=== PATIENT | female | born 1990 | race Caucasian/White ===

== ENCOUNTER 2017-07-24 16:08 | Emergency (ER) | payer MEDICAID, SELFPAY ==
[2017-07-24 16:09] VITALS: BP 126/73; PULSE 90; RESP 17; TEMP 36.6; O2SAT 98; BMI 27.8
[2017-07-24] MEDS: 0.9% Normal Saline 1,000 ML 1000 ML IV (16:43)
[2017-07-24] MEDS: Ondansetron 4 MG/2 ML Vial IV (16:43)
[2017-07-24 17:03] LABS: Absolute Lymphocyte Count 2.15 X10^3/ul (0.83-4.51); Absolute Neutrophil Count 1.9 X10^3/uL (2.0-7.7); Basophil# 0.03 X10^3/uL; Basophil% 0.7 % (0-1); Eosinophil# 0.14 X10^3/uL; Eosinophils% 3.1 % (0-5); Hematocrit 34.3 % (37-47); Hemoglobin 11.5 g/dl (12.0-15.0); Lymphocyte # 2.15 X10^3/ul (4.0); Lymphocyte % 48.3 % (19-41); Mean Corp Hgb Conc 33.5 g/gl (32-36); Mean Corpuscular Hgb 29.2 pg (27.0-32.0); Mean Corpuscular Volume 87.1 fL (81-99); Mean Platelet Vol. 8.6 fl (6.2-12.0); Monocyte# 0.26 X10^3/uL; Monocyte% 5.8 % (0-10); Neutrophil # 1.87 X10^3/uL (2.7-7.7); Neutrophil % 42.1 % (47-70); Platelet Count 403 K/mm3 (150-450); RBC Distribution Width CV 15.8 % (11.6-14.6); Red Blood Count 3.94 M/mm3 (4.2-5.4); White Blood Count 4.5 K/mm3 (4.4-11.0)
[2017-07-24 17:18] LABS: Anion Gap 6 (5-15); BUN 11 mg/dL (7-18); BUN/Creat Ratio 18.2 RATIO (10-20); Calcium,Total 8.6 mg/dL (8.5-10.1); Chloride 109 mmol/L (98-107); Creatinine, Serum 0.61 mg/dL (0.55-1.02); EST Glomerular Filtration Rate 127 mL/min (>60); Est Glom Filt Rate - Afr Amer 154 mL/min (>60); Estimated Creatinine Clearance 126.86 ml/min; Glucose 94 mg/dL (74-106); Potassium 3.2 mmol/L (3.5-5.1); Sodium Level 142 mmol/L (136-145)
[2017-07-24 17:33] LABS: Pregnancy, Serum, hCG Quali. NEGATIVE Negative (0-9 Nonpreg)
[2017-07-24 17:40] LABS: POSITIVE COUNT NO; POSITIVE DIFFERENTIAL NO; POSITIVE MORPHOLOGY NO
--- NOTE | 2017-07-24 17:50 | ED.VISSUMM ---
- ER Visit Summary Date of Service: 07/24/17 Chief Complaint: Lightheaded History of Present Illness: The patient is a [address] Avery. 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 States that she feels lightheaded and that she may be dehydrated. She reports that yesterday at work she began feeling lightheaded around lunch and became nauseated. She is vomited 5-6 times since then. No blood or emesis. No diarrhea. No abdominal pain. Physical Examination: Vitals: Stable. Afebrile. General: Well-nourished and well-developed. Head: Normocephalic atraumatic. Neck: Supple, no lymphadenopathy. No JVD. Nontender. Cardiovascular: Regular rate and rhythm. No murmurs. Respiratory: No respiratory distress. Clear to auscultation bilaterally. Abdominal: Soft, nontender, nondistended, normal bowel sounds. No guarding, rebound, or peritoneal signs. Back: Nontender. Extremities: Nontender, no edema. Skin: Normal color, no rash. Neurologic: Alert and oriented ?3. Cranial nerves II through XII are intact. Normal strength and sensation. Psych: Normal affect. Test Results: BC is remarkable for an H&H of 11.5 and 34.3, segmented neutrophils of 42, lymphocytes of 48. Chem-7 is marked potassium 3.2 chloride 109. test is negative. Emergency Department Course and Treatment: Patient is given a liter of normal saline and Zofran IV. She is resting comfortably. She has had no vomiting while here. Treatment Plan: Patient will be discharged with Zofran instructed to push fluids. Follow-up with primary care physician 1-2 days not improving. Return to the emergency department for any worsening symptoms. Disposition: To home in improved and stable condition. Impression: 1. Vomiting. This note was generated with [employer] dictation software. It may contain incorrect words, spelling, and punctuation that were not noted in review of the chart prior to signing ED Disposition - Plan for ED Patient: Disposition: Home or Assisted Living Chief Complaint: Weakness Instructions: ED Nausea Vomiting Prescriptions: Ondansetron [Zofran Odt] 4 mg PO Q8H PRN PRN #10 tablet PRN Reason: Nausea Referrals: Alka Colón, SUPPLY CHAIN GENERALIST-C [Primary Care Provider] - 1-2 Days if not improving
[2017-07-24 18:32] VITALS: BP 120/74; PULSE 81; RESP 16; O2SAT 99
== END 2017-07-24 18:33 | disposition home or self-care (01) ==
LOC: ED 16:58
PROVIDERS: Emergency Provider Emergency Medicine; Family Provider Nurse Practitioner Family; PCP Nurse Practitioner Family
DX: R11.2 Nausea with vomiting, unspecified (principal); R42 Dizziness and giddiness
CPT/HCPCS: 80048; 84703; 85025; 96361; 96374; 99283; J7030; A4216; J2405

== ENCOUNTER 2018-07-30 14:49 | Emergency (ER) | payer MEDICAID, SELFPAY ==
[2018-07-30 14:49] VITALS: BP 119/48; PULSE 89; RESP 16; TEMP 36.6; O2SAT 100; BMI 23.8
--- NOTE | 2018-07-30 15:17 | CT_ITS ---
STUDY: CT ABDOMEN AND PELVIS WITHOUT CONTRAST REASON FOR EXAM: Female, 27 years old. Right lower quadrant pain. History of prior tubal ligation. RADIATION DOSAGE (If Supplied By Facility): CTDIvol = ( 9.49 ) mGy, DLP = ( 439.40 ) mGycm TECHNIQUE: Transaxial images were obtained from the dome of the diaphragm to the symphysis pubis without oral contrast, and without intravenous contrast. Sagittal and coronal images were reconstructed. Individualized dose optimization techniques were used for this CT. COMPARISON: January 18, 2017. FINDINGS: The visualized lung bases are unremarkable. The visualized portions of the heart are within normal limits. Normal liver. Normal gallbladder and extrahepatic biliary system. Normal spleen. Normal pancreas. Normal bilateral adrenal glands. Normal right kidney. Normal left kidney. Normal visualized stomach. Normal small intestine. Normal colon. The appendix is visualized and appears normal. Normal abdominal aorta. There is venous distention of the inferior vena cava (IVC). Normal retroperitoneum. Normal urinary bladder. The uterus appears anteverted and of normal size and contour. There is evidence of tubal ligation clips. There is no adnexal mass. No pelvic lymphadenopathy. No free air or free fluid is seen within the peritoneal cavity. Normal abdominal wall. Normal osseous structures. CT/Abdomen/Pelvis without Cont IMPRESSION: 1. Normal appendix. 2. No evidence of renal ureteral or urinary bladder abnormality. 3. No evidence for acute intra-abdominal process or major interval change. Electronically Signed: Vasiliy Grace DO at 16:35 EDT Tel [phone], Service support ,
[2018-07-30 15:36] LABS: Absolute Lymphocyte Count 2.13 X10^3/ul (0.83-4.51); Absolute Neutrophil Count 3.5 X10^3/uL (2.0-7.7); Basophil# 0.02 X10^3/uL; Basophil% 0.3 % (0-1); Eosinophil# 0.17 X10^3/uL; Eosinophils% 2.7 % (0-5); Hematocrit 36.9 % (37-47); Hemoglobin 12.7 g/dl (12.0-15.0); Lymphocyte # 2.13 X10^3/ul (4.0); Lymphocyte % 34.4 % (19-41); Mean Corp Hgb Conc 34.4 g/gl (32-36); Mean Corpuscular Hgb 30.9 pg (27.0-32.0); Mean Corpuscular Volume 89.8 fL (81-99); Mean Platelet Vol. 9.3 fl (6.2-12.0); Monocyte% 6.5 % (0-10); Neutrophil # 3.48 X10^3/uL (2.7-7.7); Neutrophil % 56.1 % (47-70); POSITIVE COUNT NO; POSITIVE DIFFERENTIAL NO; POSITIVE MORPHOLOGY NO; Platelet Count 451 K/mm3 (150-450); RBC Distribution Width CV 13.2 % (11.6-14.6); RBC Distribution Width SD 43.2 fl (35.1-43.9); Red Blood Count 4.11 M/mm3 (4.2-5.4); White Blood Count 6.2 K/mm3 (4.4-11.0)
[2018-07-30 15:39] LABS: Internal QC Validated? YES +Cl - CLEAR BKGD; Pregnancy, Serum, hCG Quali. NEGATIVE Negative
[2018-07-30 15:44] LABS: Anion Gap 7 (5-15); BUN 10 mg/dL (7-18); BUN/Creat Ratio 14.6 RATIO (10-20); Calcium,Total 8.5 mg/dL (8.5-10.1); Chloride 109 mmol/L (98-107); Creatinine, Serum 0.69 mg/dL (0.55-1.02); EST Glomerular Filtration Rate 109 mL/min (>60); Est Glom Filt Rate - Afr Amer 132 mL/min (>60); Estimated Creatinine Clearance 111.18 ml/min; Glucose 91 mg/dL (74-106); Potassium 3.7 mmol/L (3.5-5.1); Sodium Level 143 mmol/L (136-145)
[2018-07-30] MEDS: 0.9% Normal Saline 1,000 ML 125 ML IV (16:07)
[2018-07-30] MEDS: Morphine 4 MG/ML Syringe IV (16:07)
[2018-07-30] MEDS: Ondansetron 4 MG/2 ML Vial IV (16:07)
[2018-07-30] MEDS: Ketorolac 30 MG/ML Syringe IV (16:07)
[2018-07-30 16:29] LABS: Color, Urine Yellow (Yellow); Glucose, Dipstick Normal (Normal); Ketone-Dipstick Negative (Negative); Leukocyte Esterase-Dipstick Negative /ul (Negative); Nitrite-Dipstick Negative (Negative); Occult Blood-Urine Negative /ul (Negative); Protein-Dipstick Negative (Negative); Specific Gravity, Urine 1.015 (1.002-1.030); Urine Bilirubin Dipstick Negative (Negative); Urine Clarity Sl. Cloudy (Clear); Urine Urobilinogen Normal (Normal)
--- NOTE | 2018-07-30 16:55 | ED.DCSUM_ITS ---
- ER Visit Summary Date of Service: 07/30/18 Chief Complaint: [Abdominal pain] History of Present Illness: The patient is a 27 F [presents the emergency department for abdominal pain that started 45 minutes prior to arrival in the emergency department. Patient describes a sharp stabbing pain. She rates it a 9 out of 10. She is had nausea but no vomiting. She denies any diarrhea. She denies any urinary symptoms. She is had no fever. Patient is never had pain like this before. She denies any radiation to her back. Patient's last menstrual. Was July 12 but was shorter than usual and that it only lasted 2 days. Patient is G8, P3. Patient states the pain started when she was sitting on the couch and it came on gradually and worsened. Movement does not seem to exacerbate it.] Patient states the pain is in the right lower quadrant. Physical Examination: [HEENT-PERRLA, EOMI. Cranial nerves II through XII grossly intact. TMs clear. Mucous membranes moist. No adenopathy. Cardiovascular-regular rate and rhythm without murmur or ectopy Lungs-clear to auscultation, chest wall stable without crepitus or subcu emphysema Abdomen-normoactive bowel sounds, soft. Patient has tenderness to the right lower quadrant with some guarding. There is no rebound, rigidity, or perineal signs. Patient has some mild CVA tenderness on the right. Extremities-intact ?4, normal range of motion, normal pulses, atraumatic] Test Results: [CBC with differential was normal. Chemistries were normal. Urinalysis normal. hCG was negative. CT flank showed nothing acute. The appendix was visualized and was normal. She had no bowel obstruction or hernias noted. No adnexal masses noted.] Emergency Department Course and Treatment: [Patient was medicated with Toradol and 4 mill grams of morphine and 4 mg of Zofran. Patient's pain resolved.] Treatment Plan: [She will be given a prescription for a few [place] for severe pain. Patient advised to follow-up with primary care physician within next 3 to 5 days. Patient advised to return if worsening pain, fever, vomiting, or condition should worsen anyway.] Disposition: [Discharged home in stable condition] Impression: [Abdominal pain-etiology uncertain] This note was generated with [employer] software. It may contain incorrect words, spelling, and punctuation that were not noted in review of the chart prior to signing ED Disposition - Plan for ED Patient: Referrals: Alka Colón, MEDICAL SERVICE REPRESENTATIVE-C [Primary Care Provider] -
--- NOTE | 2018-07-30 16:55 | ED.DEP ---
ED Disposition - Plan for ED Patient: Instructions: ED Abdominal Pain Unkn Cause Prescriptions: Hydrocodone Bitart/Apap 5-325 [[place] 5MG-325MG] 1 tab PO Q4H PRN PRN 2 Days #10 tab PRN Reason: Pain Referrals: Alka Colón, MARKET INVESTIGATOR-C [Primary Care Provider] - 3-5 Days
--- NOTE | 2018-07-30 16:56 | DCINST.ED_ITS ---
ED Disposition - Plan for ED Patient: Instructions: ED Abdominal Pain Unkn Cause Prescriptions: Hydrocodone Bitart/Apap 5-325 [[place] 5MG-325MG] 1 tab PO Q4H PRN PRN 2 Days #10 tab PRN Reason: Pain Referrals: Alka Colón, ANTHROPOMETRIST-C [Primary Care Provider] - 3-5 Days
[2018-07-30 17:18] VITALS: BP 101/55; PULSE 61; RESP 14
[2018-07-30 17:18] LABS: Bacteria 3+ /hpf (None Seen); Mucous, Urine 1+ /hpf (<or=2+); Red Blood Cells-Urine 0-5 SEEN /hpf (0-5); Squamous Epithelial Cells - UA 10-25 SEEN /hpf (5-10); White Blood Cells 0-5 SEEN /hpf (0-5)
== END 2018-07-30 17:18 | disposition home or self-care (01) ==
LOC: ED 15:38
PROVIDERS: Emergency Provider Emergency Medicine; Family Provider Nurse Practitioner Family; PCP Nurse Practitioner Family
DX: R10.31 Right lower quadrant pain (principal); R11.0 Nausea; Z72.0 Tobacco use
CPT/HCPCS: 74176; 80048; 81001; 84703; 85025; 96361; 96374; 96375; 99284; J7030; A4216; J2405

== ENCOUNTER 2018-09-07 14:46 | Emergency (ER) | payer MEDICAID, SELFPAY ==
[2018-09-07 14:47] VITALS: BP 110/80; PULSE 103; RESP 15; TEMP 36.7; O2SAT 98; BMI 23.3
[2018-09-07] MEDS: Ketorolac 30 MG/ML Syringe IV (16:05)
[2018-09-07] MEDS: 0.9% Normal Saline 1,000 ML 125 ML IV (16:05)
[2018-09-07 16:23] LABS: Red Blood Cells-Urine 0 SEEN /hpf (0-5)
[2018-09-07 16:23] LABS: Absolute Lymphocyte Count 1.48 X10^3/ul (0.83-4.51); Absolute Neutrophil Count 9.3 X10^3/uL (2.0-7.7); Basophil# 0.02 X10^3/uL; Basophil% 0.2 % (0-1); Eosinophil# 0.14 X10^3/uL; Eosinophils% 1.2 % (0-5); Hematocrit 37.1 % (37-47); Hemoglobin 12.8 g/dl (12.0-15.0); Lymphocyte # 1.48 X10^3/ul (4.0); Lymphocyte % 12.6 % (19-41); Mean Corp Hgb Conc 34.5 g/gl (32-36); Mean Corpuscular Hgb 31.4 pg (27.0-32.0); Mean Corpuscular Volume 91.2 fL (81-99); Monocyte# 0.79 X10^3/uL; Monocyte% 6.8 % (0-10); Neutrophil # 9.25 X10^3/uL (2.7-7.7); Platelet Count 403 K/mm3 (150-450); RBC Distribution Width CV 13.6 % (11.6-14.6); RBC Distribution Width SD 44.9 fl (35.1-43.9); Red Blood Count 4.07 M/mm3 (4.2-5.4); White Blood Count 11.7 K/mm3 (4.4-11.0)
[2018-09-07 16:27] LABS: POSITIVE COUNT NO; POSITIVE DIFFERENTIAL NO; POSITIVE MORPHOLOGY NO
[2018-09-07 16:30] LABS: Color, Urine Straw (Yellow); Glucose, Dipstick Normal (Normal); Ketone-Dipstick 50 mg/dl (Negative); Leukocyte Esterase-Dipstick 25 /ul (Negative); Nitrite-Dipstick Negative (Negative); Occult Blood-Urine 10 /ul (Negative); Protein-Dipstick 15 mg/dl (Negative); Urine Clarity Sl. Cloudy (Clear); Urine Urobilinogen 8 mg/dl (Normal)
[2018-09-07 16:34] LABS: Urine Bilirubin Dipstick 1 mg/dL (Negative)
[2018-09-07 16:44] LABS: Squamous Epithelial Cells - UA 5-10 SEEN /hpf (5-10); White Blood Cells 0-5 SEEN /hpf (0-5)
[2018-09-07 16:44] LABS: ALB/GLOB Ratio 1.1 RATIO (0.9-2.4); AST(SGOT) 10 U/L (15-37); Alanine Aminotransfer ALT/SGPT 13 U/L (13-56); Albumin, Serum 3.9 g/dL (3.2-5.0); Alkaline Phosphatase 73 U/L (45-117); Anion Gap 3 (5-15); BUN 15 mg/dL (7-18); BUN/Creat Ratio 25.6 RATIO (10-20); Calcium,Total 9.2 mg/dL (8.5-10.1); Chloride 109 mmol/L (98-107); Creatinine, Serum 0.58 mg/dL (0.55-1.02); EST Glomerular Filtration Rate 131 mL/min (>60); Est Glom Filt Rate - Afr Amer 159 mL/min (>60); Estimated Creatinine Clearance 132.26 ml/min; Globulin 3.5 g/dL (2.2-4.2); Glucose 77 mg/dL (74-106); Potassium 3.2 mmol/L (3.5-5.1); Protein, Total 7.4 g/dL (6.4-8.2); Sodium Level 141 mmol/L (136-145)
[2018-09-07 16:45] LABS: Bacteria RARE /hpf (None Seen); Mucous, Urine 3+ /hpf (<or=2+)
[2018-09-07 17:16] LABS: Internal QC Validated? YES +Cl - CLEAR BKGD; Pregnancy, Serum, hCG Quali. NEGATIVE Negative
[2018-09-07 17:53] VITALS: BP 106/63; PULSE 80; RESP 16; O2SAT 100
--- NOTE | 2018-09-07 18:15 | ED.VISSUMM ---
- ER Visit Summary Date of Service: 09/07/18 Chief Complaint: [Abdominal pain] History of Present Illness: The patient is a 27 F [presents to the emergency department with abdominal pain that she has had off-and-on for the last month although on further questioning she states that it has actually been there for several years ever since she has had her tubal ligation. Patient states she has had multiple ER visits for this pain and no etiology has ever been found. Patient was seen by me within the last month for the same complaint at which time she had blood work and a CT scan of the abdomen pelvis which did not show anything significant. Patient is following up with her primary care physician but does not have an appointment till November. Patient is currently on her menstrual period. The pain became worse today and she comes in for repeat evaluation. She describes a sharp pain at right lower quadrant and rates it about a 6 or 7 out of 10. Patient states that she has been taking Aleve and it oftentimes will help take away the discomfort to a manageable point. Patient denies any fever. She denies nausea or vomiting. She denies any blood in her stool or black tarry stool. She denies urinary symptoms. She does not think she is .] Physical Examination: [HEENT-PERRLA, EOMI. Cranial nerves II through XII grossly intact. TMs clear. Mucous membranes moist. No adenopathy. Cardiovascular-regular rate and rhythm without murmur or ectopy Lungs-clear to auscultation, chest wall stable without crepitus or subcu emphysema Abdomen-normoactive bowel sounds, soft. Patient has tenderness to palpation over right lower quadrant some guarding. There is no rebound, rigidity, cranial signs. Extremities-intact ?4, normal range of motion, normal pulses, atraumatic] Test Results: [CBC with differential again 11.7, hemoglobin 12.8, hematocrit 37, plan is 403. Chemistries unremarkable other than a slightly depressed potassium 3.2. Liver enzymes were normal. Urinalysis normal. hCG was negative.] Emergency Department Course and Treatment: [Was medicated with Toradol and she states that she had good pain relief with that. At this point I do not feel she needs further imaging as she just recently had a CT scan of the pelvis. Patient will be referred to general surgery flight information expediter for no doc as well as CLINICAL CYTOGENETICS DIRECTOR for further follow-up. Patient will be given a prescription for few [place] for severe pain.] Treatment Plan: [Furled general surgery and CLINICAL CYTOGENETICS DIRECTOR. Patient also given a few [place] for pain] Disposition: [Discharged to home stable condition.] Impression: [Acute exacerbation of chronic abdominal pain-etiology uncertain] This note was generated with [employer] dictation software. It may contain incorrect words, spelling, and punctuation that were not noted in review of the chart prior to signing ED Disposition - Plan for ED Patient: Referrals: Alka Colón, PARKS RECREATION COORDINATOR-C [Primary Care Provider] -
--- NOTE | 2018-09-07 18:18 | DCINST.ED_ITS ---
ED Disposition - Plan for ED Patient: Instructions: ABDOMINAL PAIN, Unknown Cause, (Female) Prescriptions: Hydrocodone Bitart/Apap 5-325 [[place] 5MG-325MG] 1 tab PO Q4H PRN PRN 2 Days #10 tab PRN Reason: Pain Prescription Printed Referrals: Alka Colón, GAUGE MACHINE OPERATOR-C [Primary Care Provider] - Doron Francisco MD [STAFF PHYSICIAN] - 3-5 Days Mamta Waddell MD [STAFF PHYSICIAN] - 3-5 Days
--- NOTE | 2018-09-07 18:18 | ED.DEP ---
ED Disposition - Plan for ED Patient: Instructions: ABDOMINAL PAIN, Unknown Cause, (Female) Prescriptions: Hydrocodone Bitart/Apap 5-325 [[place] 5MG-325MG] 1 tab PO Q4H PRN PRN 2 Days #10 tab PRN Reason: Pain Prescription Printed Referrals: Alka Colón, YARN EXAMINER SKEINS-C [Primary Care Provider] - Doron Francisco MD [STAFF PHYSICIAN] - 3-5 Days Mamta Waddell MD [STAFF PHYSICIAN] - 3-5 Days
[2018-09-07 18:25] VITALS: RESP 16
== END 2018-09-07 18:25 | disposition home or self-care (01) ==
LOC: ED 15:43
PROVIDERS: Emergency Provider Emergency Medicine; Family Provider Nurse Practitioner Family; PCP Nurse Practitioner Family
DX: R10.31 Right lower quadrant pain (principal); G89.29 Other chronic pain
CPT/HCPCS: 80053; 81001; 84703; 85025; 96361; 96374; 99283; J7030

== ENCOUNTER 2019-02-15 16:04 | Emergency (ER) | payer MEDICAID, SELFPAY ==
[2019-02-15 16:05] VITALS: BP 128/66; PULSE 84; RESP 16; TEMP 36.7; O2SAT 98; BMI 23.8
--- NOTE | 2019-02-15 16:16 | ED.DCSUM_ITS ---
History of Present Illness Narrative: 28-year-old female presents with finger laceration. Patient was cutting onions with her [id number] when the knife slipped and cut her index finger. States it was bleeding which concerned her and she came to the emergency department. No significant pain. Last tetanus was 8 years ago. <Maxwell Quinn - Last Filed: 02/15/19 16:25> <Mary Chu - Last Filed: 02/16/19 00:31> Chief Complaint: Laceration Past Medical History Prior records reviewed: Yes Past Medical History: None Surgical History: no surgical history Lives: Spouse/ Significant Other Smoking Status: Current every day smoker <Maxwell Quinn - Last Filed: 02/15/19 16:25> <Mary Chu - Last Filed: 02/16/19 00:31> - Allergies and Home Meds Allergies/Adverse Reactions: Allergies oxycodone [From Percocet] Allergy (Verified 09/07/18 14:50) Hives tomato Allergy (Verified 09/07/18 14:50) Anaphylaxis Primary Care Physician: Alak Colón MINE INSPECTOR FEDERAL-C [Primary Care Provider] - Review of Systems General: Denies: Chills, Fever, Sweats Eyes: Denies: Visual changes - bilaterally, Diplopia ENT: Denies: Rhinorrhea, Sore throat Cardiovascular: Denies: Chest pain, Palpitations Respiratory: Denies: Dyspnea, Cough, Dyspnea on exertion Gastrointestinal: Denies: Abdominal pain, Nausea, Vomiting, Diarrhea, Melena, Hematochezia Genitourinary: Denies: Dysuria, Hematuria, Frequency Musculoskeletal: Denies: Back pain, Extremity Pain Skin: Denies: Rash, Wounds Neurological: Denies: Headache, Weakness, Numbness <Maxwell Quinn - Last Filed: 02/15/19 16:25> Physical Exam Vital Signs/Narrative: Vital Signs Temp Pulse Resp BP Pulse Ox 02/15/19 16:05 98.1 F 84 16 128/66 H 98 General: Well nourished, Well developed, No Acute Distress Head: Normocephalic, Atraumatic Eyes: Perrl, EOMI ENT: Moist mucous membranes, No rhinorrhea Neck: Supple, Nontender Cardiovascular: Regular rate, Regular rhythm, No murmurs Respiratory: No distress, CTA bilaterally, Chest nontender Abdomen: Soft, Nontender, Nondistended, Normal bowel sounds Back: Nontender, Normal Inspection Extremities: Nontender, No edema Skin: Normal color, No rash, - - 0.5 cm superficial laceration to the left index finger. Neurological: Alert, Oriented x3, Cranial nerves II-XII grossly intact, Normal Strength, Normal Sensation Psychological: Normal affect, Normal Mood <Maxwell Quinn - Last Filed: 02/15/19 16:25> Diagnostic/Tx/Re-eval - Medical Decision Making She appears well and nontoxic. Tdap was updated. Wound repaired with shoe adhesive. No indication for imaging or antibiotics. Patient had the wound thoroughly cleansed and soaked in the emergency department. Asked to follow-up with primary care within the next 48 hours for reevaluation of the wound. Patient agreeable and discharged home in stable condition. <Maxwell Quinn - Last Filed: 02/15/19 16:25> - Medical Decision Making Patient seen and evaluated with resident. Patient was cutting some food at home when she cut her left index and long fingers with a knife. Bleeding is well controlled at this time. Patient sitting upright in bed no acute distress. Left upper extremity examination reveals small laceration along the radial aspect of the distal index finger. There is a small, 1 to 2 mm, laceration on the long finger. Patient has normal sensation distally with good cap refill. Wounds are cleansed. Dermabond is applied. Tetanus update is provided. <Mary Chu - Last Filed: 02/16/19 00:31> ED Disposition <Maxwell Quinn - Last Filed: 02/15/19 16:25> <Mary Chu - Last Filed: 02/16/19 00:31> - Plan for ED Patient: Disposition: Home or Assisted Living Diagnosis: Finger laceration Instructions: LACERATION, Hand Referrals: Alka Colón NP-C [Primary Care Provider] -
[2019-02-15] MEDS: Diphth,Pertuss(Acell),Tet Vac 0.5 ML Vial IM (16:30)
== END 2019-02-15 16:38 | disposition home or self-care (01) ==
LOC: ED 16:27
PROVIDERS: Emergency Provider Emergency Medicine; Family Provider Nurse Practitioner Family; PCP Nurse Practitioner Family
DX: S61.211A Laceration without foreign body of left index finger without damage to nail, initial encounter (principal); W26.0XXA Contact with knife, initial encounter; Y93.G1 Activity, food preparation and clean up; Y92.009 Unspecified place in unspecified non-institutional (private) residence as the place of occurrence of the external cause; F17.200 Nicotine dependence, unspecified, uncomplicated
CPT/HCPCS: 12001; 90471; 90715; 99282

== ENCOUNTER 2019-09-10 15:37 | Emergency (ER) | payer MEDICAID, SELFPAY ==
[2019-09-10 15:37] VITALS: BP 122/75; PULSE 58; RESP 18; TEMP 36.3; O2SAT 99; BMI 27.4
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
[2019-09-10 16:29] VITALS: BP 122/75; PULSE 58; RESP 18; TEMP 36.3; O2SAT 99
[2019-09-10] MEDS: Meclizine HCl 25 MG Tablet PO (16:43)
[2019-09-10] MEDS: 0.9% Normal Saline 1,000 ML 999 ML IV (16:44)
[2019-09-10] MEDS: Metoclopramide 10 MG/2 ML Vial 5 MG IV (16:44)
[2019-09-10 18:36] VITALS: BP 121/74; PULSE 81; RESP 14; O2SAT 99
--- NOTE | 2019-09-10 18:36 | ED.RN ---
THIS NURSE REVIEWED D/C INSTRUCTIONS WITH PT. PT VERBALIZED UNDERSTANDING OF INSTRUCTIONS. IV D/C. IV CATHETER INTACT. PT TOLERATED WELL. PT DENIES FURTHER NEEDS OR QUESTIONS AT THIS TIME. PT AMBULATES FROM ROOM ON OWN WITHOUT ASSISTANCE FROM STAFF
== END 2019-09-10 18:37 | disposition home or self-care (01) ==
PROVIDERS: Emergency Provider Emergency Medicine; PCP Nurse Practitioner Family
DX: H81.10 Benign paroxysmal vertigo, unspecified ear (principal)
CPT/HCPCS: 96361; 96374; 99284; A4216

== ENCOUNTER 2020-06-01 11:34 | Emergency (ER) | payer MEDICAID, SELFPAY ==
[2020-04-19 16:29] VITALS: BMI 29.1
[2020-06-01 11:35] VITALS: BP 129/82; PULSE 90; RESP 18; TEMP 36.7; O2SAT 98; BMI 28.3
--- NOTE | 2020-06-01 11:59 | ED.VISSUMM ---
- ER Visit Summary Date of Service: 06/01/20 Chief Complaint: Fall History of Present Illness: The patient is a [address] Angeles. She reports that she was walking down the steps when she tripped over a blanket and fell backwards. She states that she fell down 14 wooden steps. Did hit her head. No loss of consciousness. She is not on anticoagulants. She reports that she has right elbow pain and stated 10 severity. She is right-hand dominant. She denies neck or back pain. States she does have a headache that is 4-10 severity. Physical Examination: Vitals: Stable. Afebrile. Neck: No vertebral tenderness. Full ROM without difficulty. Cleared by NEXUS criteria. Back: No vertebral tenderness. General: A&O x 3. NAD. Cardiovascular exam: Regular rate and rhythm, no murmur, rub or gallop. Respiratory exam: Chest nontender. No crepitus. Clear to auscultation bilaterally. No wheezes or stridor. Abdominal exam: Soft, nontender, nondistended, normal bowel sounds. No pain in RUQ or LUQ specifically. No peritoneal signs. Extremity: Contusion just proximal to her olecranon process on the right. Her right elbow has severe tenderness palpation. Decreased range of motion secondary to pain. Mild tenderness palpation over her humerus. She is neuro vas intact distal to this. Test Results: Clinical Impression(s) from Imaging Studies Humerus X-Ray 06/01/20 12:15 IMPRESSION: Normal x-ray examination of the humerus. Electronically Signed: Puneet Doyle MD at 12:43 EDT , Service support , Elbow X-Ray 06/01/20 12:20 IMPRESSION: Normal x-ray examination of the elbow. Electronically Signed: Puneet Doyle MD at 12:43 EDT , Service support , Emergency Department Course and Treatment: Patient was given naproxen p.o. She is resting more comfortably. Treatment Plan: Patient be discharged instructions use Tylenol/ibuprofen for pain. Ice the area. Follow-up her primary care physician in 1 week if not improving. Return to the emergency department for any worsening symptoms. Disposition: To home in improved and stable condition. Impression: 1. Fall. 2. Right elbow contusion. This note was generated with [employer] software. It may contain incorrect words, spelling, and punctuation that were not noted in review of the chart prior to signing ED Disposition - Plan for ED Patient: Instructions: ED Contusion, Elbow Referrals: Alka Colón PRINTED CIRCUIT BOARD PREASSEMBLER, PRINTED CIRCUIT BOARD PREASSEMBLER-C [NON-STAFF] - 1 Week if not improving
--- NOTE | 2020-06-01 12:15 | RAD_ITS ---
STUDY: X-RAY - RIGHT HUMERUS REASON FOR EXAM: Female, 29 years old. Injury/Pain following a fall TECHNIQUE: 2 view(s) of the humerus. COMPARISON: None. FINDINGS: Normal visualized humerus. There is no demonstrated fracture or osseous destructive process. There is no demonstrated soft tissue abnormality. RAD/Humerus min 2 Views IMPRESSION: Normal x-ray examination of the humerus. Electronically Signed: Puneet Doyle MD at 12:43 EDT , Service support ,
--- NOTE | 2020-06-01 12:20 | RAD_ITS ---
STUDY: X-RAY - RIGHT ELBOW REASON FOR EXAM: Female, 29 years old. Injury/Pain TECHNIQUE: 3 view(s) of the elbow. COMPARISON: None. FINDINGS: Normal visualized humerus, radius and ulna. Normal radiocapitellar and ulnotrochlear articulations. The soft tissue structures are unremarkable. RAD/Elbow min 3 Views IMPRESSION: Normal x-ray examination of the elbow. Electronically Signed: Puneet Doyle MD at 12:43 EDT , Service support ,
[2020-06-01] MEDS: Naproxen 500 MG Tablet PO (13:02)
[2020-06-01 13:08] VITALS: BP 106/58; PULSE 69; RESP 16; O2SAT 97
== END 2020-06-01 13:12 | disposition home or self-care (01) ==
PROVIDERS: Emergency Provider Emergency Medicine; PCP Family Medicine
DX: S50.01XA Contusion of right elbow, initial encounter (principal); W10.9XXA Fall (on) (from) unspecified stairs and steps, initial encounter; Y93.01 Activity, walking, marching and hiking; Y92.9 Unspecified place or not applicable; Y99.9 Unspecified external cause status
CPT/HCPCS: 73060; 73080; 99282

== ENCOUNTER 2020-08-26 12:59 | Emergency (ER) | payer MEDICAID, SELFPAY ==
[2020-08-26 13:00] VITALS: BP 122/85; PULSE 107; RESP 16; TEMP 36.2; O2SAT 97; BMI 25.0
--- NOTE | 2020-08-26 13:41 | ED.RN ---
PT STATES SHE HAS TO LEAVE TO GO HOME TO HER KIDS. URINE COLLECTED AT THIS TIME. DR QUIJANO MADE AWARE. LEFT AT 1340
--- NOTE | 2020-08-26 13:43 | EX.ED.DYSGE1 ---
HPI History of Present Illness Chief Complaint: Anxiety Informant: patient Narrative Narrative: 29-year-old female states that for the past several days she has been out of her medications. She knows that she supposed be taking hydroxyzine but is unsure what the other one is. She states that her kidneys are hurting her she feels very poorly. She has a yellow vaginal discharge. Patient denies any fevers dysuria or hematuria. She states that today she feels like she may have had a panic attack. She states that she lost her insurance and cannot get her medications. She states that she may have to find a new counselor/psychiatrist because she was supposed to schedule appointment but she did have enough minutes on her phone to do that. She would like to have this conversation while she is on the phone with her boyfriend who is not present. [facility] Medical History Anxiety Bipolar 1 disorder Chest pain Chronic neck and back pain Diarrhea Difficulty balancing when standing Fatigue Severe headache SOB (shortness of breath) Home Medications escitalopram oxalate 10 mg PO DAILY 06/01/20 [History Last Taken Unknown] hydroxyzine pamoate 25 mg PO BID 06/01/20 [History Last Taken Unknown] Allergy/AdvReac Type Severity Reaction Status Date / Time oxycodone [From Percocet] Allergy Hives Verified 08/26/20 13:02 tomato Allergy Anaphylaxis Verified 08/26/20 13:02 Surgical History History of tubal ligation Social History Smoking Status: Former smoker alcohol intake: never ROS ROS ED Constitutional Constitutional ED: Denies chills or weight loss Eyes Eyes: Denies change in vision or diplopia ENT ENT ED: Denies ear pain, rhinorrhea or sore throat Cardiovascular Cardiovascular: Denies chest pain, orthopnea, palpitations or racing heartbeat Respiratory/Chest Respiratory/Chest: Denies cough, dyspnea or orthopnea Gastrointestinal Gastrointestinal: Denies abdominal pain, diarrhea, nausea or vomiting Genitourinary Genitourinary ED: Reports other Details: Vaginal discharge flank pain ; Denies dysuria, hematuria or urinary frequency Musculoskeletal Musculoskeletal: Denies arthralgias or myalgias Integumentary Denies abscess or rash Neurologic Neurologic: Denies headache(s) or weakness Psychiatric Psychiatric: Denies anxiety, depression, suicidal ideation or suicidal thoughts Endocrine Endocrinology: Denies polydipsia, polyphagia or polyuria Allergic/Immunologic Allergic/Immunologic ED: Denies mouth swelling, tongue swelling or urticaria EXAM Physical Exam Const Vital Signs: 08/26/20 13:00 Temperature 97.1 F L Temperature Source Temporal Pulse Rate 107 H Respiratory Rate 16 Blood Pressure 122/85 H Blood Pressure Mean 97 Pulse Ox 97 Oxygen Delivery Method Room Air Positive well nourished and well developed General Appearance ED: well developed HEENT Reports normocephalic, head/scalp atraumatic and moist mucous membranes Eyes PERRL and EOMs intact bilaterally Neck no lymphadenopathy, supple and no JVD Resp normal respiratory effort and clear to auscultation bilaterally Cardio regular rate, regular rhythm and no murmurs GI normal to inspection, nondistended, normoactive bowel sounds and non-tender Palpation: soft Back/Spine no CVA tenderness and normal ROM Extremity normal to inspection General Extremety ED: Negative for edema General Extremity: Negative for edema Neuro oriented x3 and CN's II-XII intact bilaterally Sensorium / Orientation: alert Motor Exam: strength 5/5 throughout Psych mental status grossly normal Mood & Affect: Negative for depressed or tearful Skin no rashes or lesions noted and no wounds MDM MDM MDM Narrative Medical decision making narrative: Urinalysis, urine test, and GC chlamydia were sent. While I was examining another patient to the patient abruptly informed nursing that she needed to get going because there is something going on with her children and she has now left the emergency department Discharge Plan Triage Chief Complaint: Anxiety ED Provider: Domingo Garcia Dx/Rx/DC Orders Clinical Impression: Acute flank pain, Vaginal discharge, Anxiety Prescriptions: No Action hydroxyzine pamoate 25 MG capsule 25 mg PO BID RF: 0 escitalopram oxalate 10 MG tablet 10 mg PO DAILY RF: 0 Primary Care Provider: Terrence Angeles Referrals: Terrence Angeles MD [Primary Care Provider] - Disposition Disposition: Elopement
[2020-08-26 13:49] LABS: Color, Urine Yellow (Yellow); Glucose, Dipstick Normal (Normal); Ketone-Dipstick 50 mg/dl (Negative); Leukocyte Esterase-Dipstick 25 /ul (Negative); Nitrite-Dipstick Negative (Negative); Occult Blood-Urine 10 /ul (Negative); Protein-Dipstick 30 mg/dl (Negative); Specific Gravity, Urine 1.015 (1.002-1.030); Urine Clarity Sl. Cloudy (Clear); Urine Urobilinogen 4 mg/dl (Normal)
[2020-08-26 13:50] LABS: Urine Bilirubin Dipstick 1 mg/dL (Negative)
[2020-08-26 13:51] LABS: Internal QC Validated? YES +Cl - CLEAR BKGD; Pregnancy, Urine Negative Negative
[2020-08-26 13:56] LABS: Bacteria 1+ /hpf (None Seen); Mucous, Urine RARE /hpf (<or=2+); Red Blood Cells-Urine 0-5 SEEN /hpf (0-5); Squamous Epithelial Cells - UA 0-5 SEEN /hpf (5-10); White Blood Cells 5-10 SEEN /hpf (0-5)
== END 2020-08-26 13:50 | disposition left against medical advice (07) ==
PROVIDERS: Emergency Provider Emergency Medicine; PCP Family Medicine
DX: R10.9 Unspecified abdominal pain (principal); N89.8 Other specified noninflammatory disorders of vagina; F41.9 Anxiety disorder, unspecified; Z87.891 Personal history of nicotine dependence; Z79.899 Other long term (current) drug therapy
CPT/HCPCS: 81001; 81025; 99282

== ENCOUNTER 2020-11-12 08:22 | Emergency (ER) | payer MEDICAID, SELFPAY ==
[2020-11-12 08:22] VITALS: BP 125/87; PULSE 130; RESP 15; TEMP 36.1; BMI 28.3
--- NOTE | 2020-11-12 08:39 | EDS_ITS ---
HPI History of Present Illness Chief Complaint: Eye Problem Narrative Narrative: Patient presents with left eye pain, she thinks she may have gotten some glass in her eye but it may also be. She has no other symptoms other than medial left eye pain. [facility] Medical History Anxiety Bipolar 1 disorder Chest pain Chronic neck and back pain Diarrhea Difficulty balancing when standing Fatigue Severe headache SOB (shortness of breath) Home Medications escitalopram oxalate 10 mg PO DAILY 06/01/20 [History Last Taken Unknown] hydroxyzine pamoate 25 mg PO BID 06/01/20 [History Last Taken Unknown] Allergy/AdvReac Type Severity Reaction Status Date / Time oxycodone [From Percocet] Allergy Hives Verified 11/12/20 08:23 tomato Allergy Anaphylaxis Verified 11/12/20 08:23 Surgical History History of tubal ligation Social History Smoking Status: Former smoker alcohol intake: never ROS ROS ED Constitutional Constitutional ED: Denies fever(s) Eyes Eyes: Reports other Details: Left eye pain and redness ; Denies blurry vision or change in vision ENT ENT ED: Reports other; Denies rhinorrhea Cardiovascular Cardiovascular: Denies chest pain Hematologic/Lymphatic Hematologic/Lymphatic: Denies easy bleeding Allergic/Immunologic Allergic/Immunologic ED: Denies tongue swelling or urticaria EXAM Physical Exam Narrative Exam Narrative: Physical exam General: Well nourished, Well developed, No Acute Distress Head: Normocephalic, Atraumatic Eyes: Left eye shows redness medially. Pupils are reactive. Otherwise see exam with the slit-lamp. ENT: Moist mucous membranes Neck: Supple, Nontender, No lymphadenopathy Cardiovascular: Normal pulses Const Vital Signs: 11/12/20 08:22 Temperature 96.9 F L Temperature Source Temporal Pulse Rate 130 H Respiratory Rate 15 Blood Pressure 125/87 H Blood Pressure Mean 99 MDM MDM MDM Narrative Medical decision making narrative: Slit lamp exam: Tetracaine placed I evaluated the patient with the slit-lamp, she has hyperemia and redness medial left eye and tear duct region. No foreign body is seen. Eye was everted. Fluorescein was placed There is dye uptake medial region consistent with a corneal abrasion. Otherwise no foreign body seen. Medical decision making: Patient has a corneal abrasion but no corneal foreign body. I will place her on antibiotic ointment and discharged in stable condition. Discharge Plan Triage Chief Complaint: Eye Problem ED Provider: Tanner Hernandez Dx/Rx/DC Orders Clinical Impression: Abrasion, corneal Instructions: ED Corneal Abrasion Prescriptions: No Action hydroxyzine pamoate 25 MG capsule 25 mg PO BID RF: 0 escitalopram oxalate 10 MG tablet 10 mg PO DAILY RF: 0 Primary Care Provider: Terrence Angeles Referrals: Gordo Perez MD [STAFF PHYSICIAN] - 2 Days Terrence Angeles MD [Primary Care Provider] - Disposition Disposition: Home, Self Care
[2020-11-12] MEDS: Erythromycin Base 1 OPTH.TUBE 1 APPLIC LEFT EYE (08:51)
== END 2020-11-12 08:52 | disposition home or self-care (01) ==
LOC: ED 08:46
PROVIDERS: Emergency Provider Emergency Medicine; PCP Family Medicine
DX: S05.02XA Injury of conjunctiva and corneal abrasion without foreign body, left eye, initial encounter (principal); X58.XXXA Exposure to other specified factors, initial encounter; Y93.9 Activity, unspecified; Y92.9 Unspecified place or not applicable; Y99.9 Unspecified external cause status; F31.9 Bipolar disorder, unspecified; F41.9 Anxiety disorder, unspecified; Z79.899 Other long term (current) drug therapy; Z87.891 Personal history of nicotine dependence
CPT/HCPCS: 99283

== ENCOUNTER 2020-11-26 13:02 | Emergency (ER) | payer MEDICAID, SELFPAY ==
[2020-11-26 13:03] VITALS: BP 100/65; PULSE 129; RESP 16; TEMP 37.4; O2SAT 96; BMI 27.7
--- NOTE | 2020-11-26 13:25 | RAD_ITS ---
STUDY: X-RAY CHEST REASON FOR EXAM: Female, 30 years old. COUGH TECHNIQUE: Single frontal view of the chest. COMPARISON: None. FINDINGS: There are bibasilar patchy opacities associated with an ill-defined opacity within the right upper lung. Normal size heart. Normal mediastinum and bertha. Normal visualized pulmonary arteries. Normal visualized aortic arch and descending thoracic aorta. Normal visualized thoracic spine. Normal visualized ribs, clavicles, and shoulders. There is no demonstrated abnormality of the visualized soft tissue structures of the upper abdomen. RAD/Chest 1 View IMPRESSION: Multifocal pneumonia. Electronically Signed: Sandie Sorto MD at 15:15 EDT Tel , Service support ,
--- NOTE | 2020-11-26 16:03 | EDS_ITS ---
HPI History of Present Illness Chief Complaint: General Illness Informant: patient Onset/Context/Timing Onset: Weeks (1) Context: Gradual Onset Timing: Continuous Quality: Weakness Location: Generalized Worsened by: Nothing Relieved by: Nothing Narrative Narrative: Patient presents with cough, congestion, with generalized weakness, and fevers that have been getting worse over the last week. Patient states she lost her sense of taste and sense of smell. Patient states her fevers have been up to 102 at home. Patient admits to sore throat and rhinorrhea. Patient admits to some shortness of breath and cough. Patient denies any sputum production. Patient admits to some nausea, vomiting, and diarrhea. Patient also admits to mild headache. Patient states her children have been diagnosed with RSV recently. [facility] Medical History Anxiety Bipolar 1 disorder Chest pain Chronic neck and back pain Diarrhea Difficulty balancing when standing Fatigue Severe headache SOB (shortness of breath) Home Medications escitalopram oxalate 10 mg PO DAILY 06/01/20 [History Last Taken Unknown] hydroxyzine pamoate 25 mg PO BID 06/01/20 [History Last Taken Unknown] Allergy/AdvReac Type Severity Reaction Status Date / Time oxycodone [From Percocet] Allergy Hives Verified 11/26/20 13:05 tomato Allergy Anaphylaxis Verified 11/26/20 13:05 Surgical History History of tubal ligation Social History Smoking Status: Former smoker alcohol intake: never ROS ROS ED Constitutional Constitutional ED: Reports fever(s); Denies chills Eyes Eyes: Reports blurry vision; Denies change in vision ENT ENT ED: Reports rhinorrhea and sore throat Cardiovascular Cardiovascular: Reports chest pain; Denies palpitations Respiratory/Chest Respiratory/Chest: Reports cough and dyspnea Gastrointestinal Gastrointestinal: Reports diarrhea, nausea and vomiting Genitourinary Genitourinary ED: Denies dysuria or hematuria Musculoskeletal Musculoskeletal: Reports back pain and neck pain Integumentary Denies abscess or rash Neurologic Neurologic: Reports headache(s) and weakness Allergic/Immunologic Allergic/Immunologic ED: Denies mouth swelling or urticaria EXAM Physical Exam Const Vital Signs: 11/26/20 13:03 11/26/20 14:27 Temperature 99.3 F H Temperature Source Temporal Pulse Rate 129 H Respiratory Rate 16 Respiratory Effort Normal Non-Labored Blood Pressure 100/65 Blood Pressure Mean 76 Pulse Ox 96 Oxygen Delivery Method Room Air Positive well nourished, well developed and unkempt General Appearance ED: unkempt and well developed HEENT Reports moist mucous membranes Neck supple and no JVD Resp normal respiratory effort and clear to auscultation bilaterally Cardio regular rate, regular rhythm and no murmurs GI normal to inspection, nondistended, normoactive bowel sounds and non-tender Palpation: soft Extremity normal to inspection General Extremety ED: Negative for edema or tenderness General Extremity: Negative for edema Neuro oriented x3, CN's II-XII intact bilaterally and no sensory deficits noted Sensorium / Orientation: alert Motor Exam: strength 5/5 throughout Psych mental status grossly normal Appearance: unkempt Skin no rashes or lesions noted MDM MDM MDM Narrative Medical decision making narrative: COVID-19 rapid antigen was obtained and was positive. Portable chest x-ray was obtained. There is 1 view. On my interpretation, there is bilateral infiltrates. There is no cardiomegaly. Bony thorax is normal. Radiologist also interpreted the x-ray and agrees. Patient was advised of her findings. Patient was instructed to quarantine. Patient was instructed to take Tylenol or ibuprofen as needed for pain. Patient was instructed to take Mucinex DM as needed for cough. Patient was instructed to follow-up with her primary care physician in 5 to 7 days. Patient understood and was agreeable with the plan. All questions were answered. Radiography Chest X-Ray - ED: 1 View, Read by ED Physician, Read by Radiologist, Right Infiltrate and Left Infiltrate Diagnostic Testing: Radiology Impression Chest X-Ray 11/26/20 13:25 IMPRESSION: Multifocal pneumonia. Electronically Signed: Sandie Sorto MD at 15:15 EDT Tel , Service support , Discharge Plan Triage Chief Complaint: General Illness ED Provider: Dwight Hess Dx/Rx/DC Orders Clinical Impression: Pneumonia due to COVID-19 virus Instructions: Coronavirus Disease 2019 (COVID-19): Caring for Yourself or Others Prescriptions: No Action hydroxyzine pamoate 25 MG capsule 25 mg PO BID RF: 0 escitalopram oxalate 10 MG tablet 10 mg PO DAILY RF: 0 Primary Care Provider: Terrence Angeles Referrals: Terrence Angeles MD [Primary Care Provider] - 3-5 Days Disposition Disposition: Home, Self Care
--- NOTE | 2020-11-26 16:21 | ED.RN ---
PT LEFT PRIOR TO RECIEVING DC INSTRUCTIONS
== END 2020-11-26 16:21 | disposition home or self-care (01) ==
PROVIDERS: Emergency Provider Emergency Medicine; PCP Family Medicine
DX: U07.1 COVID-19 (principal); J12.82 Pneumonia due to coronavirus disease 2019; Z87.891 Personal history of nicotine dependence
CPT/HCPCS: 71045; 87426; 99282

== ENCOUNTER 2021-11-18 13:29 | Emergency (ER) | payer MEDICAID, SELFPAY ==
[2021-11-18 13:29] VITALS: BP 103/56; PULSE 85; RESP 16; TEMP 36.7; O2SAT 100; BMI 26.6
--- NOTE | 2021-11-18 13:53 | EX.ED.UPPERE ---
HPI History of Present Illness Chief Complaint: Upper Extremity Injury Narrative Narrative: 31-year-old female presenting with right thumb pain. She states that last night she went to take her dog for a walk and states that the dog saw something out of the trash cans and started to run pulling her over. She does not know exactly how she landed. She states her thumb was somehow hyperextended. She complains of pain at the base of the right thumb. She does not have any pain in her wrist. Patient denies head injury or LOC. No lacerations or abrasions. Patient notes that she iced it all night but still swollen and painful. [facility] Medical History Anxiety Bipolar 1 disorder Chest pain Chronic neck and back pain Diarrhea Difficulty balancing when standing Fatigue Severe headache SOB (shortness of breath) Home Medications escitalopram oxalate 10 mg tablet 10 mg PO DAILY 06/01/20 [History Last Taken Unknown] hydroxyzine pamoate 25 mg capsule 25 mg PO BID 06/01/20 [History Last Taken Unknown] naproxen 500 mg tablet (Naprosyn) 500 mg PO BID PRN pain #20 tabs 11/18/21 [Rx Last Taken Unknown] Allergy/AdvReac Type Severity Reaction Status Date / Time oxycodone [From Percocet] Allergy Hives Verified 11/18/21 13:33 tomato Allergy Anaphylaxis Verified 11/18/21 13:33 Surgical History History of tubal ligation Social History Smoking Status: Former smoker alcohol intake: never ROS ROS ED Constitutional Constitutional ED: Denies chills or fever(s) Eyes Eyes: Denies blurry vision ENT ENT ED: Denies rhinorrhea or sore throat Cardiovascular Cardiovascular: Denies chest pain or palpitations Respiratory/Chest Respiratory/Chest: Denies cough Gastrointestinal Gastrointestinal: Denies abdominal pain or constipation Genitourinary Genitourinary ED: Denies dysuria or hematuria Musculoskeletal Musculoskeletal: Reports other Details: Right thumb pain ; Denies back pain or myalgias Integumentary Denies abscess Neurologic Neurologic: Denies headache(s) or paresthesias EXAM Physical Exam Const Vital Signs: 11/18/21 13:29 Temperature 98.1 F Temperature Source Temporal Pulse Rate 85 Respiratory Rate 16 Blood Pressure 103/56 L Blood Pressure Mean 71 Pulse Ox 100 Positive well nourished General Appearance ED: NAD HEENT Reports moist mucous membranes normocephalic Eyes PERRL and EOMs intact bilaterally Chest Wall inspection of chest normal Resp normal respiratory effort and clear to auscultation bilaterally Auscultation: Negative for rales, rhonchi or wheezes Cardio regular rate and regular rhythm Extremity Extremity Narrative: Tenderness to palpation at the base of the right thumb. There is swelling and edema from the base of the right thumb to the interphalangeal joint. There is some limitation of range of motion of the interphalangeal joint of the thumb however this is likely from edema. The tip of the thumb does not have any tenderness to palpation. The nailbed is normal. Right wrist nontender to palpation. Neuro oriented x3, CN's II-XII intact bilaterally and moves all extremities Sensorium / Orientation: alert Psych mental status grossly normal MDM MDM MDM Narrative Medical decision making narrative: Patient had x-ray of the right hand on my interpretation is no acute fracture or subluxation. The radiologist reads this is a small displaced impacted fracture at the base of the distal phalanges of the fourth finger. The patient does not have any pain here. She only has pain in the thumb. She is given Naprosyn for home and placed in a thumb spica splint for comfort. Patient discharged in stable condition. Impression: 1. Right thumb strain Lab Data Attestation: I reviewed the patient's lab results. Radiography Diagnostic Testing: RAD/Hand Min 3 Views IMPRESSION: 1.? Small displaced impaction fracture at the base of the distal phalanges of the fourth finger. ? Electronically Signed: Bairon Giles MD at 14:16 EDT Reading Location ID and State: [facility] / [place] , Service support? , ? Discharge Plan Triage Chief Complaint: Upper Extremity Injury ED Provider: Eugene Harvey Dx/Rx/DC Orders Instructions: ED Hand Contusion Prescriptions: New naproxen [Naprosyn] 500 mg tablet 500 mg PO BID PRN (Reason: pain) Qty: 20 0RF No Action hydroxyzine pamoate 25 MG capsule 25 mg PO BID escitalopram oxalate 10 MG tablet 10 mg PO DAILY Primary Care Provider: Terrence Angeles Referrals: Terrence Angeles MD [Primary Care Provider] - Disposition Disposition: Home, Self Care
--- NOTE | 2021-11-18 13:54 | RAD_ITS ---
STUDY: X-RAY - RIGHT HAND REASON FOR EXAM: Female, 31 years old. Injury pain TECHNIQUE: 3 view(s) of the hand. COMPARISON: None. FINDINGS: A small impaction fracture which is predominantly horizontal is present at the base of the distal phalanx of the fourth digit. Normal radiocarpal articulation. Normal distal radioulnar joint. Normal visualized carpal bones. Normal carpal articulations Normal carpometacarpal articulation of the thumb. Normal second through fifth carpometacarpal joints. Normal metacarpi. Normal metacarpophalangeal joint of the thumb. Normal interphalangeal joint of the thumb. Normal proximal and distal phalanges of the thumb. Normal metacarpophalangeal joints of the second through fifth fingers. Normal proximal and distal interphalangeal joints of the second through fifth fingers. Normal phalanges of the second through fifth fingers. The soft tissue structures are unremarkable. RAD/Hand Min 3 Views IMPRESSION: 1. Small displaced impaction fracture at the base of the distal phalanges of the fourth finger. Electronically Signed: Bairon Giles MD at 14:16 EDT ,
== END 2021-11-18 15:57 | disposition home or self-care (01) ==
PROVIDERS: Emergency Provider Student in an Organized Health Care Education/Training Program; PCP Family Medicine; Visit Provider Student in an Organized Health Care Education/Training Program
DX: S66.911A Strain of unspecified muscle, fascia and tendon at wrist and hand level, right hand, initial encounter (principal); W01.0XXA Fall on same level from slipping, tripping and stumbling without subsequent striking against object, initial encounter; Y93.K1 Activity, walking an animal; Y99.8 Other external cause status; Z87.891 Personal history of nicotine dependence
CPT/HCPCS: 73130; 99283